=== PATIENT | female | born 1960 | race Caucasian/White ===

== ENCOUNTER → 2016-08-01 | Outpatient (REF) | payer BC ==
[~2016-08-01] MED LIST: AMLO5TAB2 PO; ELIQ5TAB PO; LEVO150T7 PO; PREM0.452 PO
== END ==
LOC: M LAB REF 17:23
PROVIDERS: ATTEND Nurse Practitioner Adult Health
DX: R74.0 Nonspecific elevation of levels of transaminase and lactic acid dehydrogenase [LDH] (principal); E83.52 Hypercalcemia

== ENCOUNTER → 2016-08-19 | Outpatient (CLI) | payer BC ==
--- NOTE | 2016-08-19 16:09 | REP ---
Radionuclide parathyroid scintigraphy with SPECT: History: Hyperparathyroidism. Technique: 27.1 mCi of technetium 99m sestamibi is injected and 15-minute delay and for hour delayed planar images of the head and neck region and mediastinum are acquired. In addition a SPECT acquisition is acquired and images are viewed rotationally about the vertical axis. Coronal and sagittal and axial re-formation images are generated and reviewed. Scintigraphic findings: The initial 15-minute delayed images demonstrate normal salivary and thyroid uptake. Expected washout from the thyroid bed is seen on four hour delayed images. No retained focus of abnormal of abnormal uptake is seen in the neck or mediastinum to suggest a parathyroid adenoma. SPECT imaging shows no evidence of abnormal residual uptake. Impression: Negative parathyroid nuclear scintigraphy with SPECT imaging. Signed by Phillip Dacosta MD 08/19/2016 05:23 P
== END ==
LOC: M RAD 09:29
PROVIDERS: ATTEND Nurse Practitioner Adult Health
DX: E21.3 Hyperparathyroidism, unspecified (principal)

== ENCOUNTER → 2016-09-22 | Outpatient (CLI) | payer BC ==
--- NOTE | 2016-09-22 15:46 | REPMRS ---
Patient History The patient states she had a clinical breast exam in August 2016. Patient is postmenopausal. No known family history of cancer. Took hormonal contraceptives for 3 years. Taking estrogen for 3 years. Taking progesterone for 3 years. Took unspecified hormones for 1 month. Digital Mammo Screening Bilat: September 22, 2016 - Exam #: [id number] Bilateral CC and MLO view(s) were taken. Technologist: Ghazal Pérez, Technologist Prior study comparison: May 28, 2015, bilateral digital mammo screening bilat performed at [facility]. January 24, 2014, bilateral bilat screen digital mammo, performed at [facility] ([facility]). FINDINGS: There are scattered fibroglandular densities. There has been no change in the appearance of the mammogram from the prior studies. There is a mild amount of residual fibroglandular tissue which is fairly symmetric. There is no interval development of dominant mass, architectural distortion, or clustered microcalcification suggestive of malignancy. ASSESSMENT: BI-RADS/ACR category 1 mammogram. Negative. Recommendation Routine screening mammogram in 1 year (for women over age 40). This mammogram was interpreted with the aid of an FDA-approved computer-aided dectection system. Electronically Signed By: Williams Agrawal MD 09/22/16 [id number]
== END ==
LOC: M RAD 15:06
PROVIDERS: ATTEND Obstetrics & Gynecology
DX: Z12.31 Encounter for screening mammogram for malignant neoplasm of breast (principal); Z78.0 Asymptomatic menopausal state; Z92.0 Personal history of contraception; Z92.23 Personal history of estrogen therapy; Z92.29 Personal history of other drug therapy

== ENCOUNTER → 2016-09-22 | Outpatient (CLI) | payer BC ==
--- NOTE | 2016-09-24 08:59 | DEXA ---
AP SPINE L1 - L4 1.158 -0.2 0.9 LT FEMUR TOTAL 0.927 -0.6 0.2 RT FEMUR TOTAL 0.951 -0.4 0.4 TOTAL BODY TOTAL OTHER DUAL FEMUR FRAX* ASSESSMENT Risk factors: Hyperthyroidism. 10 year probability of fracture Major osteoporotic fracture 6.8 % Hip fracture 2.5 % COMMENTS: Normal bone densitometry of the spine. There is low bone density of hips. The decreased density of the spine does represent a significant change. The decreased density of the left hip does not represent a significant change. The decreased density of the right hip does not represent a significant change. The density of the spine has decreased 6.9% since the initial exam on 2009. The spine density has decreased 2.9% since the most recent exam on 01/21/2013. The density of the left hip has decreased 1.6% since the initial exam on 2009. The density of the left hip has decreased 1.4% since the most recent exam on 10/2012. The density of the right hip has decreased 3.2% since the initial exam on 2009. The density of the right hip has decreased 0.3% since the most recent exam on . FOLLOW-UP: Recommendation for the next bone density exam: 2 years. MATILDE
== END ==
LOC: M WHC 11:23
PROVIDERS: ATTEND Internal Medicine
DX: E21.3 Hyperparathyroidism, unspecified (principal); M85.80 Other specified disorders of bone density and structure, unspecified site; Z13.820 Encounter for screening for osteoporosis

== ENCOUNTER → 2016-09-30 | Outpatient (REF) | payer BC | LOC: M LAB REF 12:03 | PROVIDERS: ATTEND Nurse Practitioner Adult Health | DX: E21.0 Primary hyperparathyroidism (principal) ==

== ENCOUNTER → 2017-01-06 | Outpatient (REF) | payer BC | LOC: M LAB REF 14:20 | PROVIDERS: ATTEND Nurse Practitioner Adult Health | DX: E83.52 Hypercalcemia (principal) ==

== ENCOUNTER → 2017-03-18 | Outpatient (REF) | payer BC ==
[2017-03-18 14:18] LABS: PTH INTACT 177.2 PG/ML (14.0-72.0)
== END ==
LOC: M LAB REF 13:13
DX: E83.52 Hypercalcemia (principal)
CPT/HCPCS: 83970

== ENCOUNTER → 2017-04-14 | Outpatient (REF) | payer BC ==
[2017-04-14 18:34] LABS: INFLUENZA A AMPLIFICATION NEGATIVE (NEGATIVE); INFLUENZA B AMPLIFICATION NEGATIVE (NEGATIVE)
== END ==
LOC: M LAB REF 17:05
DX: J20.9 Acute bronchitis, unspecified (principal)
CPT/HCPCS: 87502

== ENCOUNTER → 2017-09-21 | Outpatient (REF) | payer BC ==
[2017-09-21 14:31] LABS: PTH INTACT 137.4 PG/ML (18.5-88.0)
== END ==
LOC: M LAB REF 13:49
DX: E83.52 Hypercalcemia (principal)
CPT/HCPCS: 83970

== ENCOUNTER → 2017-10-05 | Outpatient (CLI) | payer BC ==
[2017-10-05 13:22] LABS: CALCIUM LEVEL 9.5 MG/DL (8.5-10.1)
[2017-10-05 13:42] LABS: PTH INTACT 73.2 PG/ML (18.5-88.0)
[2017-10-07 14:27] LABS: VITAMIN D 1,25 DIHYDROXY 70.1 pg/mL (19.9-79.3)
== END ==
LOC: M LAB 12:32
DX: E21.3 Hyperparathyroidism, unspecified (principal)
CPT/HCPCS: 82310

== ENCOUNTER → 2017-10-05 | Outpatient (CLI) | payer BC | LOC: M RAD 12:50 | DX: Z12.31 Encounter for screening mammogram for malignant neoplasm of breast (principal) | CPT/HCPCS: 77067 ==

== ENCOUNTER → 2017-11-02 | Outpatient (REF) | payer BC | LOC: M LAB REF 10:40 | DX: E21.0 Primary hyperparathyroidism (principal) | CPT/HCPCS: 83970 ==

== ENCOUNTER → 2018-03-22 | Outpatient (CLI) | payer BC ==
[~2018-03-22] MED LIST changes: -AMLO5TAB2 PO; +AMLO5TAB6 PO
--- NOTE | 2018-03-23 03:01 | REP ---
Clinical: Preoperative assessment . Comparison: 06/27/2014 . Technique: PA and lateral. Findings: The mediastinum and cardiac silhouette are normal. The lung chavarria are clear and without acute consolidation, effusion, or pneumothorax. The skeletal structures are intact and normal. Impression: 1. No acute cardiopulmonary process. Electronically Signed by Ab Santizo MD 03/23/2018 02:53 A
== END ==
LOC: M RAD 16:45
PROVIDERS: ATTEND Registered Nurse
DX: Z01.818 Encounter for other preprocedural examination (principal)

== ENCOUNTER → 2018-03-26 | Outpatient (REF) | payer BC | LOC: M LAB REF 12:29 | PROVIDERS: ATTEND Internal Medicine | DX: E21.0 Primary hyperparathyroidism (principal) ==

== ENCOUNTER → 2018-08-27 | Outpatient (CLI) | payer BC ==
--- NOTE | 2018-08-27 20:32 | REP ---
ABDOMINAL SERIES: Supine and erect views of the abdomen demonstrate no free air and no evidence for obstruction. No dilated small bowel loops are seen. Surgical sutures are seen in the left upper quadrant. An accompanying view of the chest demonstrates no acute infiltrate. Heart is normal in size and the mediastinal silhouette is unremarkable. IMPRESSION: No evidence of free air or obstruction. Electronically Signed by Williams Agrawal MD 08/28/2018 07:17 P
== END ==
LOC: M WUC 19:21
PROVIDERS: ATTEND Physician Assistant
DX: R10.816 Epigastric abdominal tenderness (principal)

== ENCOUNTER → 2018-09-15 | Outpatient (REF) | payer BC ==
[2018-09-15 12:57] LABS: IRON (FE) 104 UG/DL (50-170); PERCENT SATURATION 33.8 % (13.2-45.0); TOTAL IRON BINDING CAPACITY 308 UG/DL (250-450)
[2018-09-15 13:05] LABS: FOLATE > 24.0 NG/ML; VITAMIN B12 LEVEL 454 PG/ML
== END ==
LOC: M LAB REF 11:22
PROVIDERS: ATTEND Internal Medicine
DX: Z98.84 Bariatric surgery status (principal)

== ENCOUNTER 2018-10-21 08:50 | Emergency (ER) | payer BC ==
[~2018-10-21] VITALS: Ht 160 cm; Wt 80.9 kg
[2018-10-21] MEDS ORDERED: diphenhydrAMINE INJ 50MG/ML VIAL (J1200) IV STA (09:13)
[2018-10-21] MEDS ORDERED: METOCLOPRAMIDE INJ 10MG/2ML VIAL (J2765) IV ONE (09:15)
[2018-10-21] MEDS ORDERED: NS 1,000 ML IV ONE (09:15)
--- NOTE | 2018-10-21 10:16 | REP ---
CT HEAD WITHOUT CONTRAST: HISTORY: Headache. There is no intraparenchymal hemorrhage, mass, or midline shift. The ventricular system is normal in appearance. There is no extracerebral collection. The visualized sinuses are clear. IMPRESSION: There is no intracranial lesion. Electronically Signed by Lalito Dugan MD 10/21/2018 10:43 A
[2018-10-21 12:49] VITALS: BP 132/63
--- NOTE | 2018-10-21 13:24 | REP ---
MRI BRAIN WITHOUT CONTRAST: HISTORY: Headache. COMPARISON: CT 10/21/2018. There are no areas of abnormal signal intensity in the brain. There is no intraparenchymal hemorrhage, infarct, mass, or midline shift. The ventricular system is normal in appearance. There no extracerebral collection. The sinuses are clear. IMPRESSION: There is no intracranial lesion. Electronically Signed by Lalito Dugan MD 10/21/2018 01:44 P
--- NOTE | 2018-10-21 13:35 | REP ---
MRA BRAIN WITHOUT CONTRAST: HISTORY: Headache. 3D [id number] MR angiography was performed at the level of the [place]. There is no aneurysm, arteriovenous malformation or atherosclerotic lesion. The major intracranial vessels are patent. The vertebral arteries are equal in size. IMPRESSION: Normal MRA brain. Electronically Signed by Lalito Dugan MD 10/21/2018 01:45 P
== END 2018-10-21 13:42 | disposition home or self-care (01) ==
LOC: M ED 08:50
DX: R51 Headache (principal); R11.0 Nausea; H53.143 Visual discomfort, bilateral; Z86.718 Personal history of other venous thrombosis and embolism; Z86.711 Personal history of pulmonary embolism; Z88.2 Allergy status to sulfonamides; Z79.899 Other long term (current) drug therapy
CPT/HCPCS: 70450; 70544; 70551; 96361; 96374; 96375; 99284; J1200; J2765

== ENCOUNTER → 2018-11-09 | Outpatient (CLI) | payer BC ==
--- NOTE | 2018-11-09 10:45 | REPMRS ---
Patient History The patient states she had a clinical breast exam in 2018. No known family history of cancer. Took hormonal contraceptives for 3 years. Took estrogen for 3 years. Took progesterone for 3 years. Took unspecified hormones for 1 month. 3D TOMOSYNTHESIS WAS PERFORMED. The Michael Gorman lifetime risk for breast cancer is 6.6%. Digital Mammo Screening Bilat: November 09, 2018 - Exam #: [id number] Bilateral CC and MLO view(s) were taken. Technologist: Preeti Miller, Technologist Prior study comparison: October 05, 2017, bilateral digital mammo screening bilat performed at [facility]. September 22, 2016, bilateral digital mammo screening bilat performed at [facility]. FINDINGS: There are scattered fibroglandular densities. There has been no change in the appearance of the mammogram from the prior studies. There is a mild amount of residual fibroglandular tissue which is fairly symmetric. There is no interval development of dominant mass, architectural distortion, or clustered microcalcification suggestive of malignancy. Assessment: BI-RADS/ACR category 1 mammogram. Negative Mammogram. Recommendation Routine screening mammogram in 1 year (for women over age 40). This mammogram was interpreted with the aid of an FDA-approved computer-aided dectection system. Electronically Signed By: Williams Agrawal MD 11/09/18 [id number]
== END ==
LOC: M RAD 09:06
PROVIDERS: ATTEND Obstetrics & Gynecology
DX: Z12.31 Encounter for screening mammogram for malignant neoplasm of breast (principal); Z92.0 Personal history of contraception

== ENCOUNTER → 2019-01-03 | Outpatient (CLI) | payer BC ==
[2019-01-03 18:01] LABS: BASO % 0.6 % (0.0-1.0); EOS # 0.2 10^3/uL (0.0-0.5); EOS % 2.4 % (0.0-3.0); HEMATOCRIT 43.2 % (36.0-47.0); HEMOGLOBIN 13.9 g/dl (12.0-15.5); LYMPH # 2.5 10^3/uL (1.5-5.0); LYMPH % 35.7 % (24.0-44.0); MEAN CORPUSCULAR HEMOGLOBIN 28.4 pg (27.0-33.0); MEAN CORPUSCULAR HGB CONC 32.2 g/dl (32.0-36.5); MEAN CORPUSCULAR VOLUME 88.3 fl (80.0-96.0); MONO # 0.5 10^3/uL (0.0-0.8); NEUTROPHILS # 3.9 10^3/uL (1.5-8.5); NEUTROPHILS % 54.2 % (36.0-66.0); PLATELET COUNT, AUTOMATED 236 10^3/uL (150-450); RED BLOOD COUNT 4.89 10^6/uL (4.00-5.40); WHITE BLOOD COUNT 7.1 10^3/uL (4.0-10.0)
[2019-01-03 18:30] LABS: ALBUMIN 3.9 GM/DL (3.2-5.2); ALT/SGPT 62 U/L (12-78); BILIRUBIN,TOTAL 0.3 MG/DL (0.2-1.0); BLOOD UREA NITROGEN 30 MG/DL (7-18); CALCIUM LEVEL 9.3 MG/DL (8.8-10.2); CARBON DIOXIDE LEVEL 29 MEQ/L (21-32); CHLORIDE LEVEL 107 MEQ/L (98-107); CHOLESTEROL LEVEL 180 MG/DL (<200); CHOLESTEROL RISK RATIO 3.461 (<5); CREATININE FOR GFR 0.78 MG/DL (0.55-1.30); FREE T4 1.09 NG/DL (0.76-1.46); GLOMERULAR FILTRATION RATE > 60.0 (>45); GLUCOSE, FASTING 86 MG/DL (70-100); HDL CHOLESTEROL 52 MG/DL (>40); IRON (FE) 75 UG/DL (50-170); LDL CHOLESTEROL 93 MG/DL (<100); NON-HDL-C 128 MG/DL; PERCENT SATURATION 22.8 % (13.2-45.0); POTASSIUM SERUM 4.2 MEQ/L (3.5-5.1); SODIUM LEVEL 141 MEQ/L (136-145); THYROID STIMULATING HORMONE 0.262 uIU/ML (0.358-3.740); TOTAL IRON BINDING CAPACITY 329 UG/DL (250-450); TOTAL PROTEIN 6.9 GM/DL (6.4-8.2); TRIGLYCERIDES LEVEL 174 MG/DL (<150)
[2019-01-03 18:31] LABS: TOTAL 25(OH) VITAMIN D 53.7 NG/ML (30.0-100.0)
[2019-01-03 18:32] LABS: FOLATE 19.2 NG/ML (>5.4); VITAMIN B12 LEVEL 467 PG/ML (247-911)
== END ==
LOC: M LAB 16:38
PROVIDERS: ATTEND Nurse Practitioner Adult Health
DX: Z98.84 Bariatric surgery status (principal)

== ENCOUNTER 2019-03-03 13:34 | Emergency (ER) | payer BC ==
[~2019-03-03] VITALS: Ht 160 cm; Wt 75.3 kg
[2019-03-03] MEDS ORDERED: LEVO137T2 (13:43)
[2019-03-03] MEDS ORDERED: ONDANSETRON 4 MG ORAL DISINTEGRATING TAB (Q0162 PER 1MG) PO ONE (14:15)
[2019-03-03] MEDS ORDERED: ACETAMINOPHEN 325 MG TAB PO ONE (14:15)
[2019-03-03 16:13] LABS: BASO % 0.4 % (0.0-1.0); EOS # 0.1 10^3/uL (0.0-0.5); EOS % 1.6 % (0.0-3.0); HEMATOCRIT 44.3 % (36.0-47.0); LYMPH # 2.7 10^3/uL (1.5-5.0); LYMPH % 35.2 % (24.0-44.0); MEAN CORPUSCULAR HEMOGLOBIN 28.5 pg (27.0-33.0); MEAN CORPUSCULAR HGB CONC 31.6 g/dl (32.0-36.5); MEAN CORPUSCULAR VOLUME 90.2 fl (80.0-96.0); MONO # 0.5 10^3/uL (0.0-0.8); MONO % 6.2 % (0.0-5.0); NEUTROPHILS # 4.3 10^3/uL (1.5-8.5); NEUTROPHILS % 56.3 % (36.0-66.0); PLATELET COUNT, AUTOMATED 231 10^3/uL (150-450); RED BLOOD COUNT 4.91 10^6/uL (4.00-5.40); WHITE BLOOD COUNT 7.6 10^3/uL (4.0-10.0)
[2019-03-03 16:23] LABS: INR 1.06; PROTHROMBIN TIME 13.5 SECONDS (11.8-14.0)
[2019-03-03 16:24] LABS: PARTIAL THROMBOPLASTIN TIME 27.1 SECONDS (25.0-38.4)
[2019-03-03 16:32] LABS: ERYTHROCYTE SEDIMENTATION RATE 3 mm/hr (0-30)
[2019-03-03 16:41] LABS: BLOOD UREA NITROGEN 14 MG/DL (7-18); C REACTIVE PROTEIN QUANTITATIV < 0.30 MG/DL (0.00-0.30); CALCIUM LEVEL 9.6 MG/DL (8.8-10.2); CARBON DIOXIDE LEVEL 30 MEQ/L (21-32); CHLORIDE LEVEL 106 MEQ/L (98-107); CREATININE FOR GFR 0.77 MG/DL (0.55-1.30); GLOMERULAR FILTRATION RATE > 60.0 (>45); GLUCOSE, FASTING 80 MG/DL (70-100); POTASSIUM SERUM 4.6 MEQ/L (3.5-5.1); SODIUM LEVEL 142 MEQ/L (136-145)
--- NOTE | 2019-03-03 19:08 | REP ---
CT brain: 03/03/2019. Indication: Head trauma. Comparison: MRI brain dated 10/21/2018. Technique: Unenhanced axial CT images of the brain were obtained from skull base to vertex with coronal reconstructions provided. Findings: There is no acute intracranial hemorrhage, acute cortical infarction, mass effect, hydrocephalus or acute calvarial fracture. Impression: No acute intracranial process. Electronically Signed by Franko Zaragoza DO 03/03/2019 03:50 P
[2019-03-03 19:30] VITALS: BP 149/70
== END 2019-03-03 19:44 | disposition home or self-care (01) ==
LOC: M ED 13:34
DX: S06.0X0A Concussion without loss of consciousness, initial encounter (principal); S00.03XA Contusion of scalp, initial encounter; W01.0XXA Fall on same level from slipping, tripping and stumbling without subsequent striking against object, initial encounter; Y92.018 Other place in single-family (private) house as the place of occurrence of the external cause; Z79.899 Other long term (current) drug therapy; Z88.1 Allergy status to other antibiotic agents; Z88.2 Allergy status to sulfonamides; Z87.891 Personal history of nicotine dependence
CPT/HCPCS: 36415; 70450; 80048; 85025; 85610; 85652; 85730; 86140; 99284; Q0162

== ENCOUNTER → 2019-03-21 | Outpatient (CLI) | payer BC ==
[~2019-03-21] MED LIST changes: +LEVO137T2
[2019-03-21 17:57] LABS: BASO % 0.4 % (0.0-1.0); EOS # 0.2 10^3/uL (0.0-0.5); HEMATOCRIT 43.3 % (36.0-47.0); HEMOGLOBIN 13.9 g/dl (12.0-15.5); LYMPH # 2.8 10^3/uL (1.5-5.0); LYMPH % 34.2 % (24.0-44.0); MEAN CORPUSCULAR HEMOGLOBIN 28.6 pg (27.0-33.0); MEAN CORPUSCULAR HGB CONC 32.1 g/dl (32.0-36.5); MEAN CORPUSCULAR VOLUME 89.1 fl (80.0-96.0); MONO # 0.6 10^3/uL (0.0-0.8); MONO % 7.5 % (0.0-5.0); NEUTROPHILS # 4.5 10^3/uL (1.5-8.5); NEUTROPHILS % 55.7 % (36.0-66.0); PLATELET COUNT, AUTOMATED 237 10^3/uL (150-450); RED BLOOD COUNT 4.86 10^6/uL (4.00-5.40)
[2019-03-21 18:39] LABS: ALBUMIN 4.2 GM/DL (3.2-5.2); ALT/SGPT 90 U/L (12-78); BILIRUBIN,TOTAL 0.3 MG/DL (0.2-1.0); BLOOD UREA NITROGEN 25 MG/DL (7-18); CALCIUM LEVEL 9.8 MG/DL (8.8-10.2); CARBON DIOXIDE LEVEL 28 MEQ/L (21-32); CHLORIDE LEVEL 103 MEQ/L (98-107); CHOLESTEROL LEVEL 201 MG/DL (<200); CHOLESTEROL RISK RATIO 3.295 (<5); CREATININE FOR GFR 1.07 MG/DL (0.55-1.30); FREE T4 0.99 NG/DL (0.76-1.46); GLOMERULAR FILTRATION RATE 55.7 (>45); GLUCOSE, FASTING 73 MG/DL (70-100); HDL CHOLESTEROL 61 MG/DL (>40); IRON (FE) 74 UG/DL (50-170); LDL CHOLESTEROL 109 MG/DL (<100); NON-HDL-C 140 MG/DL; PERCENT SATURATION 21.1 % (13.2-45.0); POTASSIUM SERUM 4.5 MEQ/L (3.5-5.1); SODIUM LEVEL 140 MEQ/L (136-145); TOTAL IRON BINDING CAPACITY 351 UG/DL (250-450); TOTAL PROTEIN 7.2 GM/DL (6.4-8.2); TRIGLYCERIDES LEVEL 157 MG/DL (<150)
[2019-03-21 18:40] LABS: TOTAL 25(OH) VITAMIN D 78.7 NG/ML (30.0-100.0)
[2019-03-21 18:41] LABS: FOLATE > 24.0 NG/ML; VITAMIN B12 LEVEL 430 PG/ML
== END ==
LOC: M LAB 16:17
PROVIDERS: ATTEND Nurse Practitioner Adult Health
DX: Z98.84 Bariatric surgery status (principal); E55.9 Vitamin D deficiency, unspecified; E66.01 Morbid (severe) obesity due to excess calories

== ENCOUNTER 2019-04-13 08:22 | Emergency (ER) | payer OTHER, BC ==
[~2019-04-13] VITALS: Ht 160 cm; Wt 73.0 kg
[2019-04-13] MEDS ORDERED: IBUPROFEN 800 MG TAB PO ONE (09:00)
[2019-04-13] MEDS ORDERED: ACETAMINOPHEN 500 MG TAB PO ONE (09:00)
--- NOTE | 2019-04-13 09:18 | REP ---
CT of the brain without IV contrast: Comparison is 03/03/2019. There is no subdural or epidural hematoma. There is no intraparenchymal or subarachnoid hemorrhage. There is no edema, mass effect or midline shift. The ventricles are normal size. The cortical stripe is unremarkable. The visualized paranasal sinuses and mastoid air cells are clear. Impression: Essentially negative CT study of the brain. There is no change from the prior study. Electronically Signed by Williams Maldonado MD 04/13/2019 09:10 A
--- NOTE | 2019-04-13 09:26 | REP ---
CT of the cervical spine: There are no comparisons. Axial images are acquired helical scanning and a reformatted in sagittal coronal projections. 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 Vertebral body heights and alignment are normal. There is degenerative disc disease at C4-5, 07/19 and 08/20. The facets are normally aligned. The prevertebral soft tissues are unremarkable. There are no posterior element fractures. Impression: There is no fracture or listhesis. There is degenerative disc disease at C4-5, 07/19, and 08/20. Electronically Signed by Williams Maldonado MD 04/13/2019 09:17 A
[2019-04-13] MEDS ORDERED: ONDA4TAB6 PO (10:04)
[2019-04-13] MEDS ORDERED: CYCL10TA PO (10:04)
[2019-04-13 10:09] VITALS: BP 147/63
== END 2019-04-13 10:12 | disposition home or self-care (01) ==
LOC: M ED 08:22
DX: S16.1XXA Strain of muscle, fascia and tendon at neck level, initial encounter (principal); M62.838 Other muscle spasm; V43.52XA Car driver injured in collision with other type car in traffic accident, initial encounter; Y92.410 Unspecified street and highway as the place of occurrence of the external cause; M50.321 Other cervical disc degeneration at C4-C5 level; M50.322 Other cervical disc degeneration at C5-C6 level; M50.323 Other cervical disc degeneration at C6-C7 level; E03.9 Hypothyroidism, unspecified; Z88.2 Allergy status to sulfonamides; Z79.899 Other long term (current) drug therapy

== ENCOUNTER → 2019-07-04 | Outpatient (CLI) | payer BC ==
[~2019-07-04] MED LIST changes: +CYCL-707 PO; +ONDA4TAB6 PO
[2019-07-04 10:46] LABS: BASO % 0.5 % (0.0-1.0); EOS # 0.1 10^3/uL (0.0-0.5); EOS % 1.7 % (0.0-3.0); HEMATOCRIT 42.8 % (36.0-47.0); HEMOGLOBIN 13.6 g/dl (12.0-15.5); LYMPH # 1.6 10^3/uL (1.5-5.0); LYMPH % 27.4 % (24.0-44.0); MEAN CORPUSCULAR HEMOGLOBIN 28.4 pg (27.0-33.0); MEAN CORPUSCULAR HGB CONC 31.8 g/dl (32.0-36.5); MEAN CORPUSCULAR VOLUME 89.4 fl (80.0-96.0); MONO # 0.4 10^3/uL (0.0-0.8); MONO % 6.5 % (0.0-5.0); NEUTROPHILS # 3.7 10^3/uL (1.5-8.5); NEUTROPHILS % 63.7 % (36.0-66.0); PLATELET COUNT, AUTOMATED 207 10^3/uL (150-450); RED BLOOD COUNT 4.79 10^6/uL (4.00-5.40); WHITE BLOOD COUNT 5.9 10^3/uL (4.0-10.0)
[2019-07-04 11:20] LABS: ALT/SGPT 58 U/L (12-78); BILIRUBIN,TOTAL 0.7 MG/DL (0.2-1.0); BLOOD UREA NITROGEN 13 MG/DL (7-18); CALCIUM LEVEL 9.5 MG/DL (8.8-10.2); CARBON DIOXIDE LEVEL 29 MEQ/L (21-32); CHLORIDE LEVEL 107 MEQ/L (98-107); CREATININE FOR GFR 0.61 MG/DL (0.55-1.30); GLOMERULAR FILTRATION RATE > 60.0 (>45); GLUCOSE, FASTING 82 MG/DL (70-100); IRON (FE) 166 UG/DL (50-170); PERCENT SATURATION 53.5 % (13.2-45.0); POTASSIUM SERUM 4.6 MEQ/L (3.5-5.1); SODIUM LEVEL 141 MEQ/L (136-145); TOTAL IRON BINDING CAPACITY 310 UG/DL (250-450); TOTAL PROTEIN 6.7 GM/DL (6.4-8.2)
[2019-07-04 11:28] LABS: TOTAL 25(OH) VITAMIN D 88.6 NG/ML (30.0-100.0); VITAMIN B12 LEVEL 281 PG/ML
== END ==
LOC: M LAB 09:39
PROVIDERS: ATTEND Nurse Practitioner Adult Health
DX: Z98.84 Bariatric surgery status (principal)

== ENCOUNTER → 2019-08-17 | Outpatient (CLI) | payer OTHER ==
[2019-08-17 09:40] LABS: HEMOGLOBIN A1c 5.1 %
[2019-08-17 09:58] LABS: THYROID STIMULATING HORMONE 0.801 uIU/ML (0.358-3.740)
[2019-08-17 09:59] LABS: PROLACTIN 4.8 NG/ML
[2019-08-19 16:27] LABS: TESTOSTERONE FREE (DIRECT) 3.8 pg/mL (0.0-4.2)
== END ==
LOC: M LAB 07:58
PROVIDERS: ATTEND Physical Medicine & Rehabilitation
DX: F07.81 Postconcussional syndrome (principal)

== ENCOUNTER → 2019-09-13 | Outpatient (RCR) | payer OTHER | LOC: M ST 08-29 13:02 | PROVIDERS: ATTEND Physical Medicine & Rehabilitation | DX: Z51.89 Encounter for other specified aftercare (principal); F07.81 Postconcussional syndrome ==

== ENCOUNTER 2019-10-05 12:55 | Outpatient (RCR) | payer BC, OTHER ==
[~2019-10-05 12:55] MED LIST changes: +AMLO1TAB24 PO; -AMLO5TAB6 PO
== END 2019-10-14 ==
LOC: M ST 12:55
PROVIDERS: ATTEND Physical Medicine & Rehabilitation
DX: F07.81 Postconcussional syndrome (principal)

== ENCOUNTER → 2019-10-22 | Outpatient (CLI) | payer BC, OTHER ==
--- NOTE | 2019-12-08 11:10 | ECGEPIP ---
[facility] Test Date: 2019-10-22 Pat Name: DUANE ANDUJAR Department: Room: - Gender: Female [employer] Architect: TAMAR : 1960 Requested By: Wilberto Cheatham Order Number: [id number] Reading MD: Jorge Law Measurements Intervals [place] Rate: 45 P: 33 [place]: 172 QRS: 21 QRSD: 133 T: 19 QT: 434 QTc: 378 Interpretive Statements MARKED SINUS BRADYCARDIA INCOMPLETE RBBB NSST ABNORMALITIES PRIOR TRACING N/A SEE SCANNED DOWNTIME REPORT
== END ==
LOC: M EKG 09:39
PROVIDERS: ATTEND Physical Medicine & Rehabilitation
DX: R00.1 Bradycardia, unspecified (principal)

== ENCOUNTER 2019-10-31 06:00 | Outpatient (RCR) | payer BC, OTHER | END 2019-11-14 | disposition home or self-care (01) | LOC: M OT 06:00 | PROVIDERS: ATTEND Physical Medicine & Rehabilitation | DX: F07.81 Postconcussional syndrome (principal) ==

== ENCOUNTER → 2019-11-07 | Outpatient (REF) | payer BC, OTHER ==
[2019-11-07 13:24] LABS: IRON (FE) 95 UG/DL (50-170); PERCENT SATURATION 34.9 % (13.2-45.0); TOTAL IRON BINDING CAPACITY 272 UG/DL (250-450)
[2019-11-07 13:27] LABS: FOLATE > 24.0 NG/ML; VITAMIN B12 LEVEL 340 PG/ML
== END ==
LOC: M LAB REF 07:36
PROVIDERS: ATTEND Internal Medicine
DX: Z98.84 Bariatric surgery status (principal)

== ENCOUNTER → 2019-11-24 | Outpatient (CLI) | payer BC ==
--- NOTE | 2019-11-24 17:12 | REPMRS ---
Patient History The patient states she had a clinical breast exam in October 2019. No known family history of cancer. Took hormonal contraceptives for 3 years. Took estrogen for 3 years. Took progesterone for 3 years. Took unspecified hormones for 1 month. 3D TOMOSYNTHESIS WAS PERFORMED. The Michael Gorman lifetime risk for breast cancer is 6.4%. ANTHONY ARLETTE Ramona. Digital Woman Screen Mammo: November 24, 2019 - Exam #: [id number] Bilateral CC and MLO view(s) were taken. Technologist: Phyllis Martines, Technologist Prior study comparison: November 09, 2018, bilateral digital mammo screening bilat, performed at [facility]. October 05, 2017, bilateral digital mammo screening bilat, performed at [facility]. FINDINGS: The breast tissue is heterogeneously dense. This may lower the sensitivity of mammography. There has been no change in the appearance of the mammogram from the prior studies. There is a moderate amount of residual fibroglandular tissue which is fairly symmetric. There is no interval development of dominant mass, areas of architectural distortion, or clustered microcalcification typical of malignancy. Assessment: BI-RADS/ACR category 1 mammogram. Negative Mammogram. Recommendation Routine screening mammogram in 1 year (for women over age 40). This mammogram was interpreted with the aid of an FDA-approved computer-aided dectection system. Electronically Signed By: Williams Agrawal MD 11/24/19 [id number]
== END ==
LOC: M WHC 16:08
PROVIDERS: ATTEND Obstetrics & Gynecology
DX: Z12.31 Encounter for screening mammogram for malignant neoplasm of breast (principal); Z92.0 Personal history of contraception

== ENCOUNTER → 2020-05-09 | Outpatient (REF) | payer BC ==
[2020-05-09 12:28] LABS: IRON (FE) 158 UG/DL (50-170); PERCENT SATURATION 46.6 % (13.2-45.0); TOTAL IRON BINDING CAPACITY 339 UG/DL (250-450)
[2020-05-09 12:34] LABS: VITAMIN B12 LEVEL 314 PG/ML
[2020-05-09 12:58] LABS: FOLATE > 24.0 NG/ML
== END ==
LOC: M LAB REF 11:34
PROVIDERS: ATTEND Internal Medicine
DX: Z98.84 Bariatric surgery status (principal)

== ENCOUNTER → 2020-11-26 | Outpatient (REF) | payer BC | LOC: M LAB REF 11:14 | PROVIDERS: ATTEND Internal Medicine | DX: Z98.84 Bariatric surgery status (principal) ==

== ENCOUNTER → 2021-04-16 | Outpatient (CLI) | payer BC | LOC: M PLAIMG 08:26 | PROVIDERS: ATTEND Anesthesiology | DX: M54.2 Cervicalgia (principal) ==

== ENCOUNTER → 2021-07-01 | Outpatient (CLI) | payer BC | LOC: M PAIN 09:30 | PROVIDERS: ATTEND Nurse Practitioner Family | DX: M54.2 Cervicalgia (principal); M79.10 Myalgia, unspecified site; M79.18 Myalgia, other site; E21.0 Primary hyperparathyroidism; E66.9 Obesity, unspecified; R01.1 Cardiac murmur, unspecified; E78.00 Pure hypercholesterolemia, unspecified; E03.9 Hypothyroidism, unspecified; M77.10 Lateral epicondylitis, unspecified elbow; Z86.711 Personal history of pulmonary embolism; Z86.718 Personal history of other venous thrombosis and embolism; Z79.899 Other long term (current) drug therapy; Z88.2 Allergy status to sulfonamides; Z88.8 Allergy status to other drugs, medicaments and biological substances; Z68.26 Body mass index [BMI] 26.0-26.9, adult ==

== ENCOUNTER → 2021-07-13 | Outpatient (CLI) | payer BC | LOC: M LABSMTC 09:10 | PROVIDERS: ATTEND Anesthesiology | DX: Z01.812 Encounter for preprocedural laboratory examination (principal); Z20.822 Contact with and (suspected) exposure to COVID-19 ==

== ENCOUNTER → 2021-07-15 | Outpatient (CLI) | payer BC ==
[~2021-07-15] MED LIST changes: +BUPIVACAINE HCL 0.25% 10ML VIAL As Ordered ONE; +BUPIVACAINE HCL 0.25% 30ML VIAL As Ordered ONE; +NORCO, ANEXSIA 5/325MG TABLET (HYDROcodone/ACETAMINOPHEN) As Ordered ONE; +TRIAMCINOLONE ACETONIDE SUSP 40 MG/ML VIAL (J3301) As Ordered ONE; +diazePAM 5MG TABLET As Ordered ONE
== END ==
LOC: M PAIN 08:30
PROVIDERS: ATTEND Anesthesiology
DX: M79.18 Myalgia, other site (principal); E21.3 Hyperparathyroidism, unspecified; E66.9 Obesity, unspecified; E78.00 Pure hypercholesterolemia, unspecified; E03.9 Hypothyroidism, unspecified; M77.10 Lateral epicondylitis, unspecified elbow; Z86.711 Personal history of pulmonary embolism; Z86.718 Personal history of other venous thrombosis and embolism; Z79.899 Other long term (current) drug therapy; Z88.2 Allergy status to sulfonamides; Z88.8 Allergy status to other drugs, medicaments and biological substances
CPT/HCPCS: 20553; J3301

== ENCOUNTER → 2021-11-27 | Outpatient (REF) | payer BC ==
[~2021-11-27] MED LIST changes: -BUPIVACAINE HCL 0.25% 10ML VIAL As Ordered ONE; -BUPIVACAINE HCL 0.25% 30ML VIAL As Ordered ONE; -NORCO, ANEXSIA 5/325MG TABLET (HYDROcodone/ACETAMINOPHEN) As Ordered ONE; -TRIAMCINOLONE ACETONIDE SUSP 40 MG/ML VIAL (J3301) As Ordered ONE; -diazePAM 5MG TABLET As Ordered ONE
[2021-11-27 12:41] LABS: PERCENT SATURATION 30.7 % (13.2-45.0)
[2021-11-28 16:08] LABS: FOLATE 15.4 ng/mL (>3.0)
== END ==
LOC: M LAB REF 11:56
PROVIDERS: ATTEND Internal Medicine
DX: Z98.84 Bariatric surgery status (principal)

== ENCOUNTER 2022-04-03 22:18 | Emergency (ER) | payer BC, OTHER ==
[~2022-04-03] VITALS: Ht 160 cm; Wt 73.0 kg
[2022-04-03 23:24] LABS: HEMATOCRIT 45.2 % (36.0-47.0); HEMOGLOBIN 14.5 g/dl (12.0-15.5); MEAN CORPUSCULAR HEMOGLOBIN 29.1 pg (27.0-33.0); MEAN CORPUSCULAR HGB CONC 32.1 g/dl (32.0-36.5); MEAN CORPUSCULAR VOLUME 90.6 fl (80.0-96.0); PLATELET COUNT, AUTOMATED 245 10^3/uL (150-450); RED BLOOD COUNT 4.99 10^6/uL (4.00-5.40); WHITE BLOOD COUNT 6.6 10^3/uL (4.0-10.0)
[2022-04-03 23:26] LABS: ETHYL ALCOHOL (ETHANOL) 0.296 % (0.000-0.010)
[2022-04-03 23:28] LABS: ACETAMINOPHEN LEVEL < 2.0 UG/ML (10.0-20.0); ALBUMIN 4.3 G/DL (3.2-5.2); ALKALINE PHOSPHATASE 101 U/L (46-116); ALT/SGPT 31 U/L (7.0-40); AST/SGOT 35 U/L (<34); BILIRUBIN,DIRECT < 0.1 MG/DL (<0.4); BILIRUBIN,TOTAL 0.4 MG/DL (0.3-1.2); BLOOD UREA NITROGEN 12 MG/DL (9-23); CALCIUM LEVEL 9.5 MG/DL (8.3-10.6); CARBON DIOXIDE LEVEL 25 MMOL/L (20-31); CHLORIDE LEVEL 110 MMOL/L (98-107); CREATININE FOR GFR 0.63 MG/DL (0.55-1.30); GLOMERULAR FILTRATION RATE > 60.0 (>45); GLUCOSE, FASTING 102 MG/DL (74-106); POTASSIUM SERUM 4.3 MMOL/L (3.5-5.1); SALICYLATE LEVEL < 3.0 MG/DL (<30); SODIUM LEVEL 145 MMOL/L (136-145); TOTAL PROTEIN 7.5 G/DL (5.7-8.2)
[2022-04-03 23:51] LABS: THYROID STIMULATING HORMONE 27.389 uIU/ML (0.55-4.78)
[2022-04-03 23:54] LABS: AMPHETAMINES LEVEL URINE NEGATIVE (NEGATIVE); BARBITURATES URINE NEGATIVE (NEGATIVE); BENZODIAZEPINES URINE NEGATIVE (NEGATIVE); CANNABINOIDS URINE NEGATIVE (NEGATIVE); COCAINE METABOLITE URINE NEGATIVE (NEGATIVE); METHADONE URINE NEGATIVE (NEGATIVE); OPIATES URINE NEGATIVE (NEGATIVE); PHENCYCLIDINE URINE NEGATIVE (NEGATIVE)
[2022-04-04] MEDS ORDERED: LEVOTHYROXINE 100MCG TABLET (0.1MG) PO SCH (06:00)
[2022-04-04 06:41] LABS: FREE T4 1.19 NG/DL (0.89-1.76)
[2022-04-04] MEDS ORDERED: LEVO100T5 PO (09:47)
[2022-04-04] MEDS ORDERED: VITMTA PO (09:57)
[2022-04-04] MEDS ORDERED: HOME MED LIST COMPLETE! XX SCH (10:00)
[2022-04-04 16:13] VITALS: BP 140/88
== END 2022-04-04 16:18 | disposition home or self-care (01) ==
LOC: M ED 22:18
DX: F43.0 Acute stress reaction (principal); F32.A Depression, unspecified; R78.5 Finding of other psychotropic drug in blood; Z86.718 Personal history of other venous thrombosis and embolism; Z88.2 Allergy status to sulfonamides; Z79.899 Other long term (current) drug therapy

== ENCOUNTER → 2022-08-25 | Outpatient (CLI) | payer OTHER ==
[~2022-08-25] MED LIST changes: +LEVO100T5 PO; +VITMTA PO
== END ==
LOC: M WHC 12:45
PROVIDERS: ATTEND Internal Medicine
DX: Z12.31 Encounter for screening mammogram for malignant neoplasm of breast (principal)

== ENCOUNTER → 2023-12-03 | Outpatient (REF) | payer BC, OTHER ==
[~2023-12-03] MED LIST changes: +ONDA-282 PO; -ONDA4TAB6 PO
[2023-12-03 18:45] LABS: IRON (FE) 117 UG/DL (50-170); PERCENT SATURATION 31.7 % (13.2-45.0); PHOSPHORUS LEVEL 3.1 MG/DL (2.4-5.1); RHEUMATOID FACTOR QUANT 7.4 IU/ML (<14); TOTAL IRON BINDING CAPACITY 369 UG/DL (250-425)
[2023-12-03 18:47] LABS: FOLATE 19.8 NG/ML (>5.4); TOTAL 25(OH) VITAMIN D 33.9 NG/ML (20.0-100.0)
[2023-12-03 18:48] LABS: FERRITIN 22.4 NG/ML (7.3-270.7)
[2023-12-03 18:51] LABS: VITAMIN B12 LEVEL > 2000 PG/ML (211-911)
[2023-12-07 23:18] LABS: CYCLIC CITRULLINATED PEPTIDE < 16 UNITS (<20)
[2023-12-08 22:16] LABS: VITAMIN A, RETINOL LEVEL 71 mcg/dL (38-98)
[2023-12-11 08:15] LABS: VITAMIN B1 LEVEL WHOLE BLOOD 91 nmol/L (78-185)
== END ==
LOC: M LAB REF 16:41
PROVIDERS: ATTEND Internal Medicine
DX: Z98.84 Bariatric surgery status (principal); E78.00 Pure hypercholesterolemia, unspecified; E03.9 Hypothyroidism, unspecified

== ENCOUNTER → 2024-06-13 | Outpatient (CLI) | payer OTHER | LOC: M WHC 12:38 | PROVIDERS: ATTEND Internal Medicine | DX: Z12.31 Encounter for screening mammogram for malignant neoplasm of breast (principal) ==

== ENCOUNTER → 2025-02-23 | Outpatient (CLI) | payer OTHER | LOC: M WHC 08:49 | PROVIDERS: ATTEND Physician Assistant | DX: Z13.820 Encounter for screening for osteoporosis (principal); M85.80 Other specified disorders of bone density and structure, unspecified site ==